=== PATIENT | male | born 1995 | race African-American/Black ===

== ENCOUNTER 2022-10-26 20:37 | Observation (INO) | payer OTHER ==
[~2022-10-26] VITALS: Ht 188 cm; Wt 81.7 kg
[~2022-10-26 20:37] MED LIST: ALBU90OI INH
[2022-10-26] MEDS ORDERED: ALBU90OI INH (21:10)
[2022-10-26 21:55] LABS: BASOPHILS ABSOLUTE AUTO 0.07 K/mm3 (0.00-0.23); BASOPHILS PERCENT AUTO 1 % (0-2); EOSINOPHILS ABSOLUTE AUTO 0.05 K/mm3 (0.00-0.68); EOSINOPHILS PERCENT AUTO 0 % (0-6); Hematocrit 44.5 % (37.0-53.0); Hemoglobin 15.3 g/dL (13.5-17.5); IMMATURE GRAN ABSOLUTE AUTO 0.04 K/mm3 (0.00-0.10); IMMATURE GRAN PERCENT AUTO 0 % (0-1); LYMPHOCYTES ABSOLUTE AUTO 2.17 K/mm3 (0.84-5.20); LYMPHOCYTES PERCENT AUTO 15 % (21-46); MONOCYTES ABSOLUTE AUTO 1.49 K/mm3 (0.16-1.47); MONOCYTES PERCENT AUTO 10 % (4-13); Mean Corpuscular HGB 30.1 pg (26.0-34.0); Mean Corpuscular HGB Conc 34.4 g/dL (31.5-36.5); Mean Corpuscular Volume 88 fL (80-100); Mean Platelet Volume 9.5 fL (9.1-12.4); NEUTROPHILS ABSOLUTE AUTO 11.02 K/mm3 (1.96-9.15); NEUTROPHILS PERCENT AUTO 74 % (41-73); Platelet Count 267 K/mm3 (150-400); RDW Coefficient Variation 12.5 % (11.7-14.2); RDW Standard Deviation 40.4 fL (35.1-46.3); Red Blood Cell Count 5.08 M/mm3 (4.30-5.90); White Blood Cell Count 14.84 K/mm3 (4.00-11.30)
[2022-10-26 22:12] LABS: Ethanol (Alcohol), Blood, Med <3 mg/dL; Salicylate 1.8 mg/dL (2.8-20.0)
[2022-10-26 22:12] LABS: Source, Urine Clean Catch
[2022-10-26 22:16] LABS: Acetaminophen, Random <2.0 ug/mL (10.0-30.0); Alanine Aminotransfer (ALT/SGP 37 U/L (12-78); Albumin, Blood 4.2 g/dL (3.4-5.0); Alk Phos 96 U/L (50-136); Anion Gap 7 mmol/L (6-16); Aspartate Aminotrans (AST/SGOT 21 U/L (12-37); Bilirubin, Total 0.8 mg/dL (0.1-1.0); Blood Urea Nitrogen 16 mg/dL (8-24); Bun/Creatinine Ratio 16.8 (12.0-20.0); CO2, Blood 24 mmol/L (21-32); Calcium, Blood 9.5 mg/dL (8.5-10.1); Chloride, Blood 108 mmol/L (98-108); Creatinine, Blood 0.95 mg/dL (0.60-1.20); Globulin, Blood 4.2 g/dL (2.2-4.0); Glomerular Filtration Rate 113 (60-); Glucose, Blood 90 mg/dL (70-99); Potassium, Blood 3.3 mmol/L (3.5-5.5); Sodium, Blood 139 mmol/L (136-145); Total Protein, Blood 8.4 g/dL (6.4-8.2)
[2022-10-26 22:23] LABS: Bilirubin, Urine 1+ (Neg); Blood, Urine Neg (Neg); Glucose Qualitative, Urine Neg (Neg); Ketones, Urine 3+ (Neg); Leukocyte Esterase, Urine 1+ (Neg); Nitrite, Urine Neg (Neg); Protein, Urine 2+ (Neg); Specific Gravity, Urine 1.025 (1.003-1.022); Urobilinogen, Urine 2+ (Normal)
[2022-10-26 22:26] LABS: Appearance, Urine Hazy (Clear); Color, Urine Yellow (P-Yellow)
[2022-10-26 22:27] LABS: Amorphous Light (0-Heavy); Bacteria Few /hpf; Mucus Heavy (0-Heavy); Red Blood Cells, Urine Not Seen /hpf (0-2); Squamous Epithelial Cells Not Seen /hpf (Few); U Amphetamine Screen DETECTED; U Barbituate Screen Not Detected; U Benzodiazapine Screen Not Detected; U Cannabinoids Screen Not Detected; U Cocaine Screen Not Detected; U Methadone Screen Not Detected; U Methamphetamine Screen DETECTED; U Opiates Screen Not Detected; U Phencyclidine Screen Not Detected
[2022-10-26 22:28] LABS: U Buprenorphine Screen Not Detected; U Oxycodone Screen Not Detected; U Propoxyphene Screen Not Detected
[2022-10-26 22:39] LABS: Influenza A, PCR NEGATIVE (NEGATIVE); Influenza B, PCR NEGATIVE (NEGATIVE); Resp Syncytial Virus, PCR NEGATIVE (NEGATIVE); SARS-Cov-2 (COVID-19) PCR, MMC NEGATIVE (NEGATIVE)
== END 2022-10-27 13:45 | disposition home or self-care (01) ==
LOC: ER 20:37 → EOR 20:38
PROVIDERS: ADMIT Emergency Medicine
DX: F33.9 Major depressive disorder, recurrent, unspecified (principal); Z20.822 Contact with and (suspected) exposure to COVID-19
CPT/HCPCS: 0241U; 36415; 80053; 81001; 84484; 85025; 86592; 93005; 93010; A9270; G0480

== ENCOUNTER 2022-10-28 18:02 | Emergency (ER) | payer OTHER ==
[~2022-10-28] VITALS: Ht 188 cm; Wt 83.9 kg
== END 2022-10-29 00:19 | disposition home or self-care (01) ==
LOC: ER 18:02
DX: S00.93XA Contusion of unspecified part of head, initial encounter (principal); F32.A Depression, unspecified; M79.662 Pain in left lower leg; F17.200 Nicotine dependence, unspecified, uncomplicated; W22.8XXA Striking against or struck by other objects, initial encounter
CPT/HCPCS: 99283

== ENCOUNTER 2022-10-29 03:22 | Emergency (ER) | payer OTHER ==
[~2022-10-29] VITALS: Ht 190.5 cm; Wt 81.7 kg
== END 2022-10-29 09:14 | disposition home or self-care (01) ==
LOC: ER 03:22
DX: F15.10 Other stimulant abuse, uncomplicated (principal); R00.2 Palpitations; F17.200 Nicotine dependence, unspecified, uncomplicated
CPT/HCPCS: 99281

== ENCOUNTER 2022-10-30 09:40 | Emergency (ER) | payer OTHER ==
[~2022-10-30] VITALS: Ht 182.9 cm; Wt 79.4 kg
== END 2022-10-30 11:20 | disposition home or self-care (01) ==
LOC: ER 09:40
DX: F41.9 Anxiety disorder, unspecified (principal); F17.210 Nicotine dependence, cigarettes, uncomplicated
CPT/HCPCS: 99282

== ENCOUNTER 2022-10-30 21:13 | Emergency (ER) | payer OTHER ==
[~2022-10-30] VITALS: Ht 182.9 cm; Wt 79.4 kg
== END 2022-10-30 22:00 | disposition home or self-care (01) ==
LOC: ER 21:13
DX: G47.9 Sleep disorder, unspecified (principal); F17.200 Nicotine dependence, unspecified, uncomplicated
CPT/HCPCS: 99282